=== PATIENT | female | born 1990 | race Caucasian/White ===

== ENCOUNTER → 2017-05-23 | Outpatient (CLI) | payer OTHER ==
--- NOTE | ~2017-05-23 | ENPV ---
Carotid Duplex Study Demographics Patient Name GROVER SANDERS Date of Study 05/23/2017 Patient Number [id number] Gender Female Date of 1990 Age 27 Visit Number [id number] Height Accession Number [id number] Weight Room Number BSA BMI Referring Bill Katz MD Physician Mary Allison Physician Physician Ordering Physician Bill De León MD Utilization Coordinator Vehicle Sales Professional Yakov Avery [facility] Conclusions Summary Bilateral <50% stenosis of the ICA Procedure Type of Study: Cerebral:Carotid, Carotid Doppler Bilateral. Indications for Study:Pulsatile tinnitus. Appropriate Use Criteria:9 Patient Status:Routine. Study Location:Vascular Lab. Technical Quality:Adequate visualization. Velocities are measured in cm/s ; Diameters are measured in cm Carotid Right Measurements Carotid Left Measurements + +--------+--------+ + + + +--------+ --------+ + + !Location !PSV !EDV !Angle !%Stenosis ! !Location !PSV ! EDV !Angle !%Stenosis ! + +--------+--------+ + + + +--------+ --------+ + + !Prox CCA !113 !24 !44 ! ! !Prox CCA !126 ! 30 !52 ! ! + +--------+--------+ + + + +--------+ --------+ + + !Dist CCA !120 !39 !60 ! ! !Dist CCA !114 ! 36 !52 ! ! + +--------+--------+ + + + +--------+ --------+ + + !Prox ICA !101 !28 !60 ! ! !Prox ICA !124 ! 34 !52 ! ! + +--------+--------+ + + + +--------+ --------+ + + !Dist ICA !110 !45 !52 ! ! !Dist ICA !119 ! 55 !58 ! ! + +--------+--------+ + + + +--------+ --------+ + + !Prox ECA !92 ! !60 ! ! !Prox ECA !82 ! !52 ! ! + +--------+--------+ + + + +--------+ --------+ + + !Vertebral !50 ! !44 ! ! !Vertebral !63 ! !52 ! ! + +--------+--------+ + + + +--------+ --------+ + + !Subclavian !130 ! ! ! ! !Subclavian !182 ! ! ! ! + +--------+--------+ + + + +--------+ --------+ + + - There is antegrade vertebral flow noted on the right side. - There is antegrade verte bral flow noted on the left side. - Add'l Measurements:ICAPSV/CCAPSV 0.97.ICAEDV/CCAEDV 1.84. - Add'l Measurements:ICAPS V/CCAPSV 0.98.ICAEDV/CCAEDV 1.85. Signature dtt: RICHIE MCCABE dtd: 05/23/17 0816 Physician Self Edit
== END | disposition disaster alternative care site (69) ==
LOC: GRAD 07:33
DX: H93.A2 Pulsatile tinnitus, left ear (principal)
CPT/HCPCS: Q9967